=== PATIENT | female | born 1955 ===

== ENCOUNTER 2023-10-25 09:36 | Day surgery (SDC) | payer MEDICARE ==
[~2023-10-25] VITALS: Ht 160 cm; Wt 78.0 kg
[~2023-10-25 09:36] MED LIST: LR 1,000 ML IV SCH; Ondansetron 4 MG/2 ML VIAL IV PRN
[2023-10-25] MEDS ORDERED: NEURONTIN100 MG/CAP PO (10:28)
[2023-10-25] MEDS ORDERED: BENICAR HCT 12.1 TA1 PO (10:29)
[2023-10-25] MEDS ORDERED: RESTORIL30 MG (10:29)
[2023-10-25] MEDS ORDERED: CELEXA40 MG PO (10:30)
[2023-10-25] MEDS ORDERED: PRILOTC (10:31)
[2023-10-25] MEDS ORDERED: BENADRYL25 M2 PO (10:31)
[2023-10-25] MEDS ORDERED: Lidocaine PF 2% (20 MG/ML) 5 ML VIAL ONE (11:07)
[2023-10-25 11:30] VITALS: BP 139/86; PULSE 60; TEMP 97.7
[2023-10-25 11:45] VITALS: BP 125/94; PULSE 94
--- NOTE | 2023-10-25 11:58 | NUR ---
1145 PATIENT RETURNS TO [facility] [place] [facility] VIA CART. PT AWAKE AND ALERT. RESPIRATIONS UNLABORED. AMBULATED TO RECLINER CHAIR WITH 2:1 SBA. PT DENIES NAUSEA OR ABDOMINAL PAIN. HOOKED UP TO MONITOR AND VS OBTAINED. CALL LIGHT AT SIDE AND FRIEND PRESENT. 1150 PATIENT TOLERATING WATER AND MUFFIN WITHOUT NAUSEA OR DIFFICULTY SWALLOWING (EGD ONLY). 1200 IN ROOM SPEAKING WITH PATIENT. 1210 D/C INSTRUCTIONS REVIEWED WITH PATIENT. PT VERBALIZED UNDERSTANDING AND A COPY OF INSTRUCTIONS PROVIDED IN D/C FOLDER. 1220 PATIENT DRESSES SELF. 1230 PATIENT DISCHARGED FROM UNIT VIA W/C TO A PERSONAL VEHICLE. PT LEFT HOSPITAL IN STABLE CONDITION.
[2023-10-25 12:00] VITALS: BP 106/72; PULSE 65
[2023-10-25 12:15] VITALS: BP 115/75; PULSE 68
== END 2023-10-25 12:30 | disposition home or self-care (01) ==
LOC: SDCO 09:36
DX: Z12.11 Encounter for screening for malignant neoplasm of colon (principal); K52.9 Noninfective gastroenteritis and colitis, unspecified; K63.3 Ulcer of intestine; K64.0 First degree hemorrhoids; Z87.19 Personal history of other diseases of the digestive system; Z85.118 Personal history of other malignant neoplasm of bronchus and lung
CPT/HCPCS: J2704; J7120